=== PATIENT | female | born 1995 | race Caucasian/White ===

== ENCOUNTER 2019-03-22 17:51 | Emergency (ER) | payer OTHER ==
[2019-03-22 18:29] VITALS: BMI 43.9
--- NOTE | 2019-03-22 18:29 | PDOC ---
Rapid Medical Evaluation Chief Complaint: Asthma Time Seen by Provider: 03/22/19 18:27 Medical Evaluation: Allergies Allergy/AdvReac Type Severity Reaction Status Date / Time No Known Allergies Allergy Verified 03/22/19 18:25 03/22/19 18:28 Pt c/o: cough, wheezing and fever , given prednisone last week and completed on thursday, no improvement with nebs Pt on brief exam: coarse bs noted to rll, mild exp wheezing, 102 hr Pt ordered for: cxr Pt to proceed to the ED Discharge Disposition - Diagnosis Cough - Referrals - Patient Instructions - Post Discharge Activity
--- NOTE | 2019-03-22 21:12 | PDOC ---
*Physical Exam - Vital Signs Last Vital Signs Temp Pulse Resp BP Pulse Ox 99.5 F 106 H 20 162/59 L 97 03/22/19 18:25 03/22/19 18:25 03/22/19 18:25 03/22/19 18:25 03/22/19 18:25 Medical Decision Making - Medical Decision Making 03/22/19 21:12 Patient seen by the advanced practice provider under my direct supervision. Ancillary testing reviewed as necessary. I agree with plan as outlined by the advanced practice provider. Discharge - Discharge Information Problems reviewed: Yes Clinical Impression/Diagnosis: Cough - Follow up/Referral - Patient Discharge Instructions - Post Discharge Activity
[2019-03-22] MEDS ORDERED: SODIUM CHLORIDE 1,000 ML IV STA (21:32)
[2019-03-22] MEDS ORDERED: methylPREDNISolone NA SUCC 125 MG/2 ML VIAL IVPUSH ONE (21:32)
[2019-03-22] MEDS ORDERED: methylPREDNISolone NA SUCC 125 MG/2 ML VIAL ONE ×2 (21:39→23:15)
--- NOTE | 2019-03-22 21:59 | PDOC ---
History of Present Illness - General Chief Complaint: Asthma Stated Complaint: ASTHMA Time Seen by Provider: 03/22/19 18:27 History Source: Patient Exam Limitations: No Limitations - History of Present Illness Initial Comments: 03/22/19 21:59 HISTORY OF PRESENT ILLNESS: 23-year-old woman past medical history of asthma ( no intubations, 1-2 annual visits for asthma related concerns) presents emergency department for evaluation of audible wheezing shortness of breath over the past 10 patient was seen and evaluated by her primary doctor 1 week ago was started on days. Steroids. Patient noted while taking the steroids she felt better no decrease use of nebulizer treatments at home. After finishing the steroids, patient noted increased need for home nebulizer treatments requiring nebulizer treatments every 2 hours. Patient reports fever started yesterday which had not been present for the previous 6 days. She denies pain. No recent travel or sick contacts. PAST MEDICAL HISTORY: Asthma SURGICAL HISTORY: Denies ALLERGIES: No known drug allergies REVIEW OF SYSTEMS General/Constitutional: Denies fever or chills. Denies weakness, weight change. HEENT: Denies change in vision. Denies ear pain or discharge. Denies sore throat. Cardiovascular: Denies chest pain or shortness of breath. Respiratory: See HPI Gastrointestinal: Denies nausea, vomiting, diarrhea or constipation. Denies rectal bleeding. Genitourinary: Denies dysuria, frequency, or change in urination. Musculoskeletal: Denies joint or muscle swelling or pain. Denies neck or back pain. Skin and breasts: Denies rash or easy bruising. Neurologic: Denies headache, vertigo, loss of consciousness, or loss of sensation. Psychiatric: Denies depression or anxiety. Endocrine: Denies increased thirst. Denies abnormal weight change. Hematologic/Lymphatic: Denies anemia, easy bleeding, or history of blood clots. Allergic/Immunologic: Denies hives or skin allergy. Denies latex allergy. PHYSICAL EXAM General Appearance: Well-appearing, appropriately dressed. No apparent distress , no intoxication. HEENT: EOMI, PERRLA, normal ENT inspection, normal voice, TMs normal, pharynx normal. No conjunctival pallor. No photophobia, scleral icterus. Neck: Supple. Trachea midline. No tenderness, rigidity, carotid bruit, stridor , lymphadenopathy, or thyromegaly. Respiratory/Chest: No shortness of breath, chest tenderness, respiratory distress, accessory muscle use. No crackles, rales, rhonchi, stridor, dullness. Audible wheezes present. Speaking full sentences. Cardiovascular: RRR. S1, S2. No JVD, murmur, bradycardia, tachycardia. Vascular Pulses: Dorsalis-Pedis (R): 2+, Dorsalis-Pedis (L): 2+ Integumentary: Appropriate color, dry, warm. 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 Fully oriented, alert. Appropriate mood/affect. Motor strength 5/5. No appreciable EOM palsy, facial droop or sensory deficit. Past History - Past Medical History Allergies/Adverse Reactions: Allergies Allergy/AdvReac Type Severity Reaction Status Date / Time No Known Allergies Allergy Verified 03/22/19 18:29 Home Medications: Ambulatory Orders Diphenhydramine HCl [Benadryl Capsule -] 25 mg PO Q4H PRN #18 capsule 12/26/13 Hydrocortisone 1% Cream [Hytone 1% Cream -] 1 applic TP BID #1 tube 12/26/13 Azithromycin [Zithromax 250mg Tablets -] 250 mg PO UTDICT #6 tab 03/23/19 Prednisone [Prednisone 50 MG TABLETS] 50 mg PO DAILY #4 tablet 03/23/19 Asthma: Yes COPD: No - Immunization History Immunization Up to Date: Yes - Psycho Social/Smoking Cessation Hx Smoking Status: No Smoking History: Never smoked Number of Cigarettes Smoked Daily: 0 Information on smoking cessation initiated: No Hx Alcohol Use: No Drug/Substance Use Hx: No *Physical Exam - Vital Signs Last Vital Signs Temp Pulse Resp BP Pulse Ox 99.5 F 106 H 20 162/59 L 97 03/22/19 18:25 03/22/19 18:25 03/22/19 18:25 03/22/19 18:25 03/22/19 18:25 ED Treatment Course - LABORATORY CBC & Chemistry Diagram: 03/22/19 23:10 03/22/19 23:10 Medical Decision Making - Medical Decision Making 03/22/19 22:10 A/P: 23-year-old woman with asthma exacerbation CBC, CMP Normal saline 1 L IV bolus Methylprednisone 125 mg IV push Omar's x4 Chest x-ray performed by MARGARET as read by Dr. So: Developing infiltrate right lower lobe. Reassess 03/22/19 22:12 03/23/19 00:22 Laboratory Tests 03/22/19 03/22/19 23:10 23:10 WBC 17.2 H RBC 5.03 Hgb 12.7 Hct 38.3 MCV 76.1 L MCH 25.3 L MCHC 33.3 RDW 15.6 Plt Count 461 H MPV 7.6 Absolute Neuts (auto) 12.5 H Neutrophils % 72.6 Lymphocytes % 17.0 Monocytes % 4.8 Eosinophils % 4.7 H Basophils % 0.9 Nucleated RBC % 0 Sodium 136 Potassium 4.4 Chloride 101 Carbon Dioxide 29 Anion Gap 7 L BUN 11.7 Creatinine 0.9 Est GFR (CKD-EPI)AfAm 104.45 Est GFR (CKD-EPI)NonAf 90.12 Random Glucose 83 Calcium 9.0 Total Bilirubin 0.7 AST 28 ALT 47 Alkaline Phosphatase 112 Total Protein 7.6 Albumin 3.9 Leukocytosis likely steroid-induced given recent steroid course. Less likely infectious as patient does not have a left shift. 03/23/19 00:43 Repeat lung exam reveals expiratory wheezes present bilateral bases. Omar's Reassess 03/23/19 04:02 Patient ambulatory throughout the ER without increased shortness of breath. Repeat lung exam reveals coarse crackles in the right base otherwise clear. Patient reports increased ease of breathing. [id number] Will discharge patient home with prescription for azithromycin and referral for pulmonology. I discussed the physical exam findings, ancillary test results and final diagnoses with the patient. I answered all of the patient's questions. The patient was satisfied with the care received and felt comfortable with the discharge plan and treatment plan. The patient will call their primary care physician within 24 hours to arrange follow-up and will return to the Emergency Department with any new, persistent or worsening symptoms. 03/23/19 04:03 Discharge - Discharge Information Problems reviewed: Yes Clinical Impression/Diagnosis: Pneumonia Qualifiers: Pneumonia type: due to unspecified organism Laterality: right Lung location: lower lobe of lung Qualified Code(s): J18.9 - Pneumonia, unspecified organism Condition: Fair Disposition: HOME - Admission No - Additional Discharge Information Prescriptions: Azithromycin [Zithromax 250mg Tablets -] 250 mg PO UTDICT #6 tab Prednisone [Prednisone 50 MG TABLETS] 50 mg PO DAILY #4 tablet - Follow up/Referral Referrals: Stevie Boyce MD [Staff Physician] - - Patient Discharge Instructions Patient Printed Discharge Instructions: DI for Pneumonia -- Adult Additional Instructions: Rest, drink lots of fluids: Teas, water, soups, Pedialyte Steamy showers/seem to face break up mucus Avoid contact with others until fevers and cough resolved Lots of handwashing and good hygiene Azithromycin as directed. Tylenol or Motrin for fever and pain Followup with private physician in one to 2 days as needed Return to emergency department for worsened symptoms, fevers, dehydration - Post Discharge Activity Work/Back to School Note: Back to Work
[2019-03-22] MEDS ORDERED: ALBUTEROL SO4 2.5/IPRATROPIUM 0.5 INH SOL 3 ML VIAL.NEB. NEB ONE (23:15)
[2019-03-22 23:23] LABS: BASO % 0.9 % (0-2.0); EOS % 4.7 % (0-4.5); HEMATOCRIT 38.3 % (32.4-45.2); HEMOGLOBIN 12.7 GM/dL (10.7-15.3); MCH 25.3 pg (25.7-33.7); MCHC 33.3 g/dl (32.0-36.0); MEAN CELL VOLUME 76.1 fl (80-96); MEAN PLT VOLUME 7.6 fl (7.5-11.1); MONO % 4.8 % (3.8-10.2); NEUT % 72.6 % (42.8-82.8); PLATELET COUNT 461 K/MM3 (134-434); RBC 5.03 M/mm3 (3.60-5.2); RDW 15.6 % (11.6-15.6); WHITE BLOOD COUNT 17.2 K/mm3 (4.0-10.0)
[2019-03-22] MEDS: ALBUTEROL SO4 2.5/IPRATROPIUM 0.5 INH SOL 3 ML VIAL.NEB. NEB SCH (23:52)
[2019-03-23 00:08] LABS: ALBUMIN 3.9 g/dl (3.4-5.0); BILIRUBIN,TOTAL 0.7 mg/dL (0.2-1); BLOOD UREA NITROGEN 11.7 mg/dL (7-18); CREATININE 0.9 mg/dL (0.55-1.3); POTASSIUM 4.4 mmol/L (3.5-5.1); TOT PROT 7.6 g/dl (6.4-8.2)
[2019-03-23] MEDS ORDERED: ALBUTEROL SO4 0.083% IH SOL 2.5 MG/3 ML VIAL.NEB. NEB ONE (01:30)
[2019-03-23] MEDS: ALBUTEROL SO4 0.083% IH SOL 2.5 MG/3 ML VIAL.NEB. NEB SCH (01:36)
[2019-03-23 05:04] VITALS: BP 138/75; PULSE 100; TEMP 99.1
== END 2019-03-23 05:00 | disposition home or self-care (01) ==
LOC: JER 17:51
PROC: 3E0F7GC Introduction of Other Therapeutic Substance into Respiratory Tract, Via Natural or Artificial Opening (ICD-10-PCS; principal; 2019-03-22)
PROC: 3E0F7GC Introduction of Other Therapeutic Substance into Respiratory Tract, Via Natural or Artificial Opening (ICD-10-PCS; 2019-03-22)
PROC: 3E0333Z Introduction of Anti-inflammatory into Peripheral Vein, Percutaneous Approach (ICD-10-PCS; 2019-03-22)
DX: J18.9 Pneumonia, unspecified organism (principal); Z87.09 Personal history of other diseases of the respiratory system
CPT/HCPCS: 36415; 71045-TC-FY; 80053; 85025; 99284-25; J7030